=== PATIENT | male | born 1945 | race Caucasian/White ===

== ENCOUNTER 2020-04-22 13:28 | Inpatient (IN) | payer OTHER ==
[2020-04-22] MEDS ORDERED: LACTATED RINGERS SOLUTION 1000 ML INFUS.BAG IV ONE ×2 (14:12→15:51)
[2020-04-22 14:20] LABS: ACTIVATED PTT 21.6 SECONDS (25.2-36.5)
[2020-04-22 14:25] LABS: ALBUMIN 3.6 g/dl (3.4-5.0); BILIRUBIN,TOTAL 0.7 mg/dl (0.2-1); CALCIUM 8.7 mg/dl (8.5-10); INR 1.06 (0.82-1.09); MAGNESIUM 1.3 mg/dL (1.8-2.4); POTASSIUM 3.8 mmol/L (3.5-5.1); PROTHROMBIN TIME (PATIENT) 11.9 SEC (10.2-13.0); TOT PROT 6.5 g/dl (6.4-8.2)
[2020-04-22 14:26] LABS: EOS % 0.3 % (0-4.5); HEMATOCRIT 44.1 % (35.4-49); HEMOGLOBIN 14.4 GM/dl (11.7-16.9); LYMPH % 19.7 % (8-40); MCH 28.8 pg (25.7-33.7); MCHC 32.8 g/dl (32.0-35.9); MEAN CELL VOLUME 87.8 fl (80-96); MEAN PLT VOLUME 7.3 fl (7.5-11.1); MONO % 1.7 % (3.8-10.2); NEUT % 76.3 % (42.8-82.8); PLATELET COUNT 245 K/MM3 (134-434); RBC 5.02 M/mm3 (4.00-5.60); WHITE BLOOD COUNT 4.5 K/mm3 (4.0-10.8)
[2020-04-22] MEDS ORDERED: MAGNESIUM SULF 50% (8.12 MEQ/2 ML-1 GM VIAL) IVPB ONE (14:33)
[2020-04-22] MEDS ORDERED: MAGNESIUM 1GM/D5W - 2 GM/200 ML IVPB IVPB ONE (15:16)
[2020-04-22] MEDS ORDERED: CEFTRIAXONE 1 GM in DEXTROSE 5%-WATER - 100 ML IVPB ONE (15:20)
[2020-04-22 15:27] LABS: PHOSPHOROUS 2.8 mg/dl (2.5-4.9)
[2020-04-22 15:33] LABS: EPITHELIAL CELLS RARE /hpf
--- NOTE | 2020-04-22 16:13 | PDOC ---
Documentation entered by Thao Danielle SCRIBE, acting as scribe for Victoria Villeda DO. Victoria Villeda DO: This documentation has been prepared by the shalondaibe, Thao Danielle SCRIBE, under my direction and personally reviewed by me in its entirety. I confirm that the documentation accurately reflects all work, treatment, procedures, and medical decision making performed by me. History of Present Illness - General Chief Complaint: Altered Mental Status Stated Complaint: CONFUSION/WEAK Time Seen by Provider: 04/22/20 13:29 History Source: Patient Exam Limitations: No Limitations - History of Present Illness Initial Comments: 04/22/20 15:56 The patient is a 74-year-old male with a past medical history significant for CAD s/p 1x stents, NIDDM, R. 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 Dia at [facility], last chemotherapy 04/19) who presents to the emergency department with weakness, confusion, and lightheadedness. The patient reports he had an episode of lightheadedness today after waking up, which resolved however, he got up to get breakfast and sat down on a chair and was deciding what to eat, when he had another episode of lightheadedness. The patient reports at times, not all the time, the episodes are positional. The patient reports associated symptoms of nausea after eating, blurry vision, and constipation associated with an episode of bright red blood in the toilet. The patient reports he was straining to use the bathroom this morning, he had 3 episodes of loose stool, with an episode of bright red blood in the toilet. The patient reports on and off episodes of blurry vision, mostly on the right side, had an episode of right sided blurry vision today, but wasn't as severe as prior episodes. The patient's sons are at his bedside, report the patient was having difficulty walking down the stairs today, he was ambulating with a shuffling gait. The patient reports pain to the side of his tongue since yesterday which presents after eating. The patient reports he is eating and drinking per usual. The patient denies chest pain or shortness of breath. Denies a headache. Denies vomiting. Denies numbness or tingling to the arm and legs. Denies recent falls or head injury. The patient was compliant with all his medications today Allergies: walnut. NKDA PCP: Dr. Pierre ([facility]) Oncologist: Dr. Dia ([facility]) tPA Exclusion checklist 3-4.5h - Time Elapsed Date last known well: 04/22/20 Time last known well: 22:00 Elaspsed time: Day(s) and Hour(s) and -299 Minutes - Thrombolytic Therapy Candidate Is patient eligible for thrombolytic therapy: No - Ineligibility reason(s) Reasons No tPA given: See reason(s) noted above (bleed on head ct) NIH Stroke Scale - Last Known Well Date/Time & Onset Date Last Known Well: 04/21/20 Time Last Known Well: 22:00 - Initial Evaluation Level of consciousness: Alert Ask patient the month and their age: Answers both correctly Ask patient to open & close eyes; make fist and let go: Obeys both correctly Best gaze (horizontal eye movement): Normal Visual field testing: No visual field loss Facial paresis (Show teeth/raise eyebrows/close eyes tight): Normal symmetrical movement Motor Function: Left Arm: Normal Motor Function: Right Arm: Normal (extends arm 90 (or 45) degrees for 10 seconds without drift Motor Function: Left Leg: Normal (extends leg 30 degrees for 5 seconds without drift) Motor Function: Right Leg: Drift Limb Ataxia: No ataxia Sensory(Use pinprick test arms,legs,trunk,face/side to side): Normal Best language (Describe picture, name items, read sentences): No Aphasia Dysarthria (read several words): Normal articulation Extinction and Inattention: No abnormality - Total Score NIH Stroke Scale Score: 1 Past History - Medical History Allergies/Adverse Reactions: Allergies Allergy/AdvReac Type Severity Reaction Status Date / Time walnut Allergy Verified 04/22/20 13:29 Home Medications: Ambulatory Orders Aspirin [ASA -] 81 mg PO DAILY 04/22/20 Atorvastatin Ca [Lipitor] 20 mg PO HS 04/22/20 Dexamethasone 2 mg PO BID 04/22/20 Lacosamide [Vimpat] 100 mg PO BID 04/22/20 Levothyroxine [Synthroid -] 75 mcg PO DAILY 04/22/20 Losartan Potassium 12.5 mg PO DAILY 04/22/20 Metformin HCl [Glucophage] 1,000 mg PO BID 04/22/20 Multivitamins [Tab-A-Vit -] 1 tab PO DAILY 04/22/20 Omeprazole 40 mg PO DAILY 04/22/20 levETIRAcetam [Keppra -] 750 mg PO BID 04/22/20 Cardiac Disorders: Yes (CAD) Diabetes: Yes (NIDDM) - Surgical History Cardiac Surgery: Yes (Stents x 2) - Immunization History Immunization Up to Date: No - Psycho-Social/Smoking History Smoking History: Former smoker Have you smoked in the past 12 months: No Information on smoking cessation initiated: No - Substance Abuse Hx (Audit-C & DAST Scrn) How often the patient has a drink containing alcohol: Never Score: In Men: 4 or > Positive; In Women: 3 or > Positive: 0 Screen Result (Pos requires Nsg. Audit-10AR): Negative In the last yr the pt used illegal drug/Rx for NonMed reason: No Score: Yes response is considered Positive: 0 Screen Result (Positive result requires Nsg. DAST-10): Negative Review of Systems - Review of Systems Able to Perform ROS?: Yes Comments:: 04/22/20 16:20 GENERAL/CONSTITUTIONAL: No fever or chills. +weakness and confusion. HEAD, EYES, EARS, NOSE AND THROAT: +pain to the side of his tongue. +right eye change in vision. No ear pain or discharge. No sore throat. No recent head injury. GASTROINTESTINAL: +nausea, constipation and bright red blood in the toilet. No vomiting. GENITOURINARY: No dysuria, frequency, or change in urination. CARDIOVASCULAR: No chest pain or shortness of breath. RESPIRATORY: No cough, wheezing, or hemoptysis. MUSCULOSKELETAL: No joint or muscle swelling or pain. No neck or back pain. SKIN: No rash NEUROLOGIC: +lightheadedness and unsteady gait. No headache, vertigo, loss of consciousness, or change in strength/sensation. ENDOCRINE: No increased thirst. No abnormal weight change. HEMATOLOGIC/LYMPHATIC: No anemia, easy bleeding, or history of blood clots. ALLERGIC/IMMUNOLOGIC: No hives or skin allergy. *Physical Exam - Vital Signs Last Vital Signs Temp Pulse Resp BP Pulse Ox 98.4 F 95 H 20 96/67 98 04/22/20 13:28 04/22/20 14:05 04/22/20 13:28 04/22/20 14:05 04/22/20 13:28 - Physical Exam 04/22/20 16:25 Constitutional: Awake, alert, oriented. No acute distress. Head: Normocephalic. Atraumatic Eyes: +3mm pupils and reactive bilaterally. EOMI. Conjunctivae are not pale. ENT: +canker sore to right lateral aspect of the anterior tongue Mucous membranes are moist and intact. Posterior pharynx without exudate or erythema. Uvula midline. Neck: Supple. Full ROM. No lymphadenopathy. Cardiovascular: Regular rate. Regular rhythm. S1, S2 regular. Distal pulses are 2+ and symmetric. Pulmonary/Chest: No evidence of respiratory distress. Clear to auscultation bilaterally No wheezing, rales or rhonchi. Abdominal: Soft and non-distended. There is no tenderness. No rebound, guarding or rigidity. No palpable masses. Good bowel sounds. Back: No CVA tenderness. Musculoskeletal: No leg edema. No cyanosis. No clubbing. Full range of motion in all extremities. No calf tenderness. Radial/pedal pulses are intact and 2+ bilaterally Skin: Skin is warm and dry. No petechiae. No purpura. Neurological: +awake, alert and oriented, Cranial nerves II-XII are grossly intact. Muscle strength 5/5, sensation intact to the upper extremity. +slight pronator drift to the right leg, sensation intact, pulses are intact. Psychiatric: Good eye contact. Normal interaction, affect and behavior. Heart Score/ECG Review - ECG Intrepretation Comment:: 04/22/20 16:12 sinus at 98, l axis, lvh, q waves septally which are new from prior ekg, no acute st/t wave findings, abnl ekg ED Treatment Course - LABORATORY CBC & Chemistry Diagram: 04/22/20 13:56 04/22/20 13:56 Medical Decision Making - Critical Care Time Total Critical Care Time (minutes): 35 Critical Care Statement: The care of this patient involved high complexity decision making to prevent further life threatening deterioration of the patient's condition and/or to evaluate & treat vital organ system(s) failure or risk of failure. - Medical Decision Making 04/22/20 16:06 a/p: 74yo male with hx of cad, htn, dm, stage IV lung ca with mets to the brain, s/p craniotomy, radiation and on active chemo -last chemo infusion was on -pt is followed and managed at [facility] -pt today with weakness, episodes of confusion, and an ataxic gait brought to the hospital by his sons for eval -pt denies fevers -has been eating and drinking normally, constipation today followed by 3 soft bm -pt denies urinary symptoms -pt with an ataxic gait at home -on neuro has R leg pronator drift -pt upon arrival was sent for a STAT head ct that showed a small area of subarachnoid blood in the R frontal cortex -labs were sent that show a low magnesium of 1.3, elevated BUN, and elevated lactate -cards is [facility] -no cp/sob, trop neg -ua + uti, iv abx sent and blood cultures sent -pt will need admission for iv abx, iv mag -Dr. Lake was consulted for the subarachnoid blood - recommends cta head, Dr. Mac was also consult for the ataxic gait and leg weakness -no TPA given pt has blood in the brain on ct -pt with a waxing and waning mental status -cta pending -case was discussed with TIMOTHY who accepts pt to service 04/22/20 16:54 cta does not show any aneurysm or avm call placed to Dr. Chase to update him 04/22/20 17:01 pt and family updated pt feeling better more awake, alert bp improved pt will be admitted to the floor Discharge - Discharge Information Problems reviewed: Yes Clinical Impression/Diagnosis: Ataxia, Confusion, UTI (urinary tract infection), Hypomagnesemia, Subarachnoid bleed Condition: Guarded - Admission Yes - Follow up/Referral - Patient Discharge Instructions - Post Discharge Activity
--- NOTE | 2020-04-22 17:31 | PN ---
Progress Note (short form) - Note Progress Note: NEUROSURGERY CONSULT DICTATED Care d/w Dr Villeda h/o CAD s/p 1x stents, NIDDM, peripheral neuropathy, OD retinal detachment (8 months ago) and NSC lung cancer with brain mets, R parietal craniotomy, last chemotherapy 04/19 c/o weakness, confusion, and lightheadedness. Lightheadedness today x2. ? positional or BP related. + blurry vision, and constipation associated with an episode of bright red blood in stool after 3 episodes of loose stool. Intermittent blurry vision, mostly on the right. Could barely get up this am. Denies H/A, N/V, sz, fever, chill, coughs, recent trauma or fall. Sons in room. PE: T 98.4, 122/79 HEENT- R parietal craniotomy scar well healed; Neck- supple; Cor- RR; Lungs- CTA B; Abd- benign; Ext- no sign of DVT Speech fluent, memory intact CN- decreased peripheral vision OD > OS, face symmetric, tongue midline; Motor- 5/5 strength without drift; Sensation- intact LT; DTR- hyporeflexic; Cerebellar- intact B FTN WBC 4.5, Hgb 14.4, INR 1.06, Ptt 20.4, Na 136, Lactic acid 4.5, BUN 26/[address]- B occipital hypodensity with no significant mass effect; R parietal craniotomy; R frontal convexity minimal hyperdensity CTA head-neck: No aneurysm or AVM; no significant enhancing lesion Metastatic brain NSC lung primary Mild dehydration DM with peripheral neuropathy B occipital non-enhancing hypodensity- encephalomalacia (post RT?) vs vascular insufficiency Maintain hydration Brain MRI with-without including diffusion imaging to r/o ischemia unless recent outside brain MRI imaging had already clearly defined/confirmed the occipital lesions as chronic Check cultures result D/w Drs. Haro and hospitalist
[2020-04-22 17:45] VITALS: TEMP 97.7
[2020-04-22 18:00] VITALS: BMI 27.9
[2020-04-22] MEDS ORDERED: ONDANSETRON 4 MG/2 ML VIAL IVPUSH PRN (18:22)
--- NOTE | 2020-04-22 18:25 | HP ---
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 after waking up, which resolved however, he got up to get breakfast and sat down on a chair felt confused so BIB family to Ed for evaluation, no c/o witnessed seizure, fever, chills, dysuria, abd pain mnausea or vomiting in the Ed w/o shows post operative changes in CT head and possible minimal ? subarchanoid hemorrhage, Neuro surgery was consulted recommended CR A Brain tht shows no aneurysm changes, as per family Ms improved after IV Hydration. History Source: Patient - Advance Directives Advance Directives: Yes: Health Care Proxy - Smoking History Smoking history: Former smoker Have you smoked in the past 12 months: No - Alcohol/Substance Use Hx Alcohol Use: No Home Medications - Allergies Allergies/Adverse Reactions: Allergies Allergy/AdvReac Type Severity Reaction Status Date / Time walnut Allergy Verified 04/22/20 13:29 - Home Medications Home Medications: Ambulatory Orders Aspirin [ASA -] 81 mg PO DAILY 04/22/20 Atorvastatin Ca [Lipitor] 20 mg PO HS 04/22/20 Dexamethasone 2 mg PO BID 04/22/20 Lacosamide [Vimpat] 100 mg PO BID 04/22/20 Levothyroxine [Synthroid -] 75 mcg PO DAILY 04/22/20 Losartan Potassium 12.5 mg PO DAILY 04/22/20 Metformin HCl [Glucophage] 1,000 mg PO BID 04/22/20 Multivitamins [Tab-A-Vit -] 1 tab PO DAILY 04/22/20 Omeprazole 40 mg PO DAILY 04/22/20 levETIRAcetam [Keppra -] 750 mg PO BID 04/22/20 Review of Systems - Review of Systems Constitutional: denies: Chills, Diaphoresis Eyes: denies: Blind Spots, Blurred Vision, Double Vision, Eye Pain HENT: denies: Difficult Swallowing, Ear Discharge Neck: denies: Lumps, Pain on Movement Cardiovascular: denies: Chest Pain, Edema, Palpitations, Shortness of Breath Respiratory: denies: Cough, Exercise Intolerance Gastrointestinal: denies: Abdominal Pain, Bloating, Constipation, Diarrhea Genitourinary: denies: Burning, Discharge Musculoskeletal: denies: Back Pain, Crepitus Neurological: reports: Confusion, Dizziness, Incoordination, Unsteady Gait. denies: Change in Speech, Headache, Numbness, Parasthesia Endocrine: denies: Excessive Sweating, Flushing, Increased Hunger, Other Hematology/Lymphatic: denies: Easily Bruised, Excessive Bleeding Physical Examination Vital Signs: Vital Signs Temperature 97.7 F 04/22/20 17:40 Pulse Rate 73 04/22/20 17:40 Respiratory Rate 18 04/22/20 17:40 Blood Pressure 107/64 04/22/20 17:40 O2 Sat by Pulse Oximetry (%) 93 L 04/22/20 17:40 Elderly man not in distress HEENT: Mm moist no anemia, PERRLA EPOMI NECK: No JVD No Bruit CHEST: CTA B/L CVS; S1S2 R no m/g/r ABD: No distention, no suprapubic tenderness, BS + EXT: No edema feet, no calf tenderness MANAGER NC: alert aware that he is in hospital , no facial asymmetry, no gross motor sensory deficit Labs: CBC, BMP 04/22/20 13:56 04/22/20 13:56 Imaging - Results Chest X-ray: Report Reviewed (No acute chnages) Cat Scan: Report Reviewed (Possible Rt frontal SAH CTA: No aneurysm report reviewed) EKG: Report Reviewed (No acute ST T changes) Problem List - Problems (1) Altered mental state Assessment/Plan: multilateral can be due to UTI /Dehydration on base line brain pathology, Neurology consult, CT and CTA reviewed, Neuro check, F/U MRI as recommended by neurology consult, observe for Seizures Problems reviewed: Yes Code(s): R41.82 - ALTERED MENTAL STATUS, UNSPECIFIED (2) UTI (urinary tract infection) Assessment/Plan: F/U Cultures cont IV Hydration and Ceftriaxone Problems reviewed: Yes Code(s): N39.0 - URINARY TRACT INFECTION, SITE NOT SPECIFIED (3) Complex partial seizure Assessment/Plan: Cont Keppra 750 BID and Vampat 100 BID observe closely for seizures. Problems reviewed: Yes Code(s): G40.209 - LOCAL-REL SYMPTC EPI W CMPLX PRT SEIZ,NOT NTRCT,W/O STAT EPI Qualifiers: Epilepsy type: partial symptomatic (4) CAD (coronary artery disease) Assessment/Plan: Cont statin Hold ASA no acute issue EKG unremarkable Problems reviewed: Yes Code(s): I25.10 - ATHSCL HEART DISEASE OF [place] CORONARY ARTERY W/O ANG PCTRS (5) Hypomagnesemia Assessment/Plan: Repleted Code(s): E83.42 - HYPOMAGNESEMIA (6) Subarachnoid bleed Assessment/Plan: Neuro check hold ASA, evaluted by Neurology and Neuro consult. Problems reviewed: Yes Code(s): I60.9 - NONTRAUMATIC SUBARACHNOID HEMORRHAGE, UNSPECIFIED (7) Lactic acidemia Assessment/Plan: on Metformin hold metformin F/U Lactic acid level Problems reviewed: Yes Code(s): E87.2 - ACIDOSIS (8) T2DM (type 2 diabetes mellitus) Assessment/Plan: Diabetic diet, Hold Metformin , correction dose insulin Problems reviewed: Yes Code(s): E11.9 - TYPE 2 DIABETES MELLITUS WITHOUT COMPLICATIONS (9) HTN (hypertension) Assessment/Plan: Hold Lisinopri Problems reviewed: Yes Code(s): I10 - ESSENTIAL (PRIMARY) HYPERTENSION
[2020-04-22] MEDS ORDERED: SODIUM CHLORIDE 1,000 ML IV SCH (18:30)
--- NOTE | 2020-04-22 18:51 | EKG ---
Test Reason : Blood Pressure : / mmHG Vent. Rate : 098 BPM Atrial Rate : 098 BPM P-R Int : 158 ms QRS Dur : 072 ms QT Int : 318 ms P-R-T Axes : 009 -41 -21 degrees QTc Int : 405 ms NORMAL SINUS RHYTHM LEFT AXIS DEVIATION MINIMAL VOLTAGE CRITERIA FOR LVH, MAY BE NORMAL VARIANT NONSPECIFIC ST ABNORMALITY ABNORMAL ECG Confirmed by MD ENCINAS MOYSES ([id number]) on 04/22/2020 6:51:19 PM Referred By: KARENA PORRAS Confirmed By:RONA ENCINAS MD
[2020-04-22] MEDS: levETIRAcetam 250 MG TABLET PO SCH (21:10)
[2020-04-22] MEDS: LACOSAMIDE 50 MG TABLET PO SCH (21:10)
--- NOTE | 2020-04-22 21:16 | CON.NEURO ---
Consult - Alcohol/Substance Use Hx Alcohol Use: No - Smoking History Smoking history: Former smoker Have you smoked in the past 12 months: No Home Medications - Allergies Allergies/Adverse Reactions: Allergies Allergy/AdvReac Type Severity Reaction Status Date / Time walnut Allergy Verified 04/22/20 13:29 - Home Medications Home Medications: Ambulatory Orders Aspirin [ASA -] 81 mg PO DAILY 04/22/20 Atorvastatin Ca [Lipitor] 20 mg PO HS 04/22/20 Dexamethasone 2 mg PO BID 04/22/20 Lacosamide [Vimpat] 100 mg PO BID 04/22/20 Levothyroxine [Synthroid -] 75 mcg PO DAILY 04/22/20 Losartan Potassium 12.5 mg PO DAILY 04/22/20 Metformin HCl [Glucophage] 1,000 mg PO BID 04/22/20 Multivitamins [Tab-A-Vit -] 1 tab PO DAILY 04/22/20 Omeprazole 40 mg PO DAILY 04/22/20 levETIRAcetam [Keppra -] 750 mg PO BID 04/22/20 Physical Exam-Neuro Vital Signs: Vital Signs Temperature 97.7 F 04/22/20 17:40 Pulse Rate 73 04/22/20 17:40 Respiratory Rate 18 04/22/20 20:06 Blood Pressure 107/64 04/22/20 17:40 O2 Sat by Pulse Oximetry (%) 93 L 04/22/20 20:06 Labs: CBC, BMP 04/22/20 13:56 04/22/20 13:56 INR, PTT INR 1.06 (0.82-1.09) 04/22/20 13:56 Assessment/Plan cc Confusion and ataxic gait HPI 74 year old male history of CAD, dm,Neuropathy, HTN, Non small cell lung cancer with brain mets. He has right fronto parietal craniotomy, seizure, and getting chemo at [facility]. Last chemo was on april 19. Patient came withfeeling of lightheadedness and, confusion and difficulty walking. Patinet has ct scan showed, there is ? sah on right frontal and bilateral occpital area lesion ? radiotion induced injury vs old lesion. Patient has been feeling better, he has dehydration, and uti. He was given abx. Patient was seen with his son at bed side, both of them work at [employer]. There has not been any high grade fever, flu like symptoms or seizure . There is no headache. He has cta and tehre is no evidence of Aneurysm. He has been on two aed and stable dose , last seizure two years ago. He is taking dexamethasone 2 mg po bid Allergies/Adverse Reactions: Allergies Allergy/AdvReac Type Severity Reaction Status Date / Time walnut Allergy Verified 04/22/20 13:29 Home Medications: Aspirin [ASA -] 81 mg PO DAILY 04/22/20 Atorvastatin Ca [Lipitor] 20 mg PO HS 04/22/20 Dexamethasone 2 mg PO BID 04/22/20 Lacosamide [Vimpat] 100 mg PO BID 04/22/20 Levothyroxine [Synthroid -] 75 mcg PO DAILY 04/22/20 Losartan Potassium 12.5 mg PO DAILY 04/22/20 Metformin HCl [Glucophage] 1,000 mg PO BID 04/22/20 Multivitamins [Tab-A-Vit -] 1 tab PO DAILY 04/22/20 Omeprazole 40 mg PO DAILY 04/22/20 levETIRAcetam [Keppra -] 750 mg PO BID 04/22/20 ROS,FH,S H reviewed in [facility] NEUROLOGICAL EXAMINATION Alert oriented x 3 ( tod me today is april 20, could not tell year, knew [facility]) neck is supple, speech is normal, vital stable eomi, pupils reactive no face asymmetry moving all ext ct head reviewed there is right ? mild sah and craniotomy there is bilateral occpital cta no aneursm Assessment/Plan 74 year old male history of CAD, dm,Neuropathy, HTN, Non small cell lung cancer with brain mets. Admitted for transient confusion, difficulty walking feeling better after iv fluid and abx. Clinically unlikley to be meningitis, tia or seizure Plan: continue keppra 750 mg po bid and lacosamide 100 mg po bid - no need for eeg - cta of neck and brain unremarkable - watch for now - continue abx - mri of brain with and without contrast, - spoke to neurosurgery, pmd and both sons, we all agree with plan - pt tomorrow - closely observation Thanking you so much
[2020-04-22] MEDS ORDERED: DEXAMETHASONE PO SCH (22:00)
[2020-04-22] MEDS ORDERED: DEXAMETHASONE 2 MG TABLET PO SCH (22:00)
[2020-04-22] MEDS ORDERED: ATORVASTATIN CA 20 MG TABLET (FP) PO SCH (22:00)
[2020-04-23] MEDS ORDERED: INSULIN SLIDING SCALE (NOVOLOG) 1 VIAL SQ SCH (07:00)
[2020-04-23] MEDS ORDERED: LEVOTHYROXINE NA 75 MCG TABLET (FP) PO SCH (07:00)
[2020-04-23 08:40] LABS: BASO % 0.7 % (0-2.0); EOS % 0.4 % (0-4.5); HEMOGLOBIN 12.1 GM/dl (11.7-16.9); LYMPH % 35.7 % (8-40); MCH 28.3 pg (25.7-33.7); MEAN CELL VOLUME 88.6 fl (80-96); MEAN PLT VOLUME 7.1 fl (7.5-11.1); MONO % 2.9 % (3.8-10.2); NEUT % 60.3 % (42.8-82.8); PLATELET COUNT 188 K/MM3 (134-434); RBC 4.29 M/mm3 (4.00-5.60); RDW 17.1 % (11.9-15.9); WHITE BLOOD COUNT 3.6 K/mm3 (4.0-10.8)
--- NOTE | 2020-04-23 08:51 | PN ---
Physical Exam: SUBJECTIVE: Patient seen and examined. Feeling better. Denies pain, weakness, fevers/chills. OBJECTIVE: Vital Signs Period Temp Pulse Resp BP Sys/Iraheta Pulse Ox Last 24 Hr 97.7 F-98.4 F 73-102 18-20 88-122/63-79 93-100 GENERAL: The patient is awake, alert, and fully oriented, in no acute distress. HEAD: Normal with no signs of trauma. EYES: PERRL, extraocular movements intact, sclera anicteric, conjunctiva clear. No ptosis. ENT: Ears normal, nares patent, oropharynx clear without exudates, moist mucous membranes. Grade II mucositis. NECK: Trachea midline, full range of motion, supple. LUNGS: Breath sounds equal, clear to auscultation bilaterally, no wheezes, no crackles, no accessory muscle use. HEART: Regular rate and rhythm, S1, S2 without murmur, rub or gallop. ABDOMEN: Soft, nontender, nondistended, normoactive bowel sounds, no guarding, no rebound, no hepatosplenomegaly, no masses. EXTREMITIES: 2+ pulses, warm, well-perfused, no edema. NEUROLOGICAL: Cranial nerves II through XII grossly intact. Normal speech, gait not observed. PSYCH: Normal mood, normal affect. SKIN: Warm, dry, normal turgor, no rashes or lesions noted. Laboratory Results - last 24 hr 04/22/20 04/22/20 04/22/20 13:50 13:56 13:56 WBC 4.5 RBC 5.02 Hgb 14.4 Hct 44.1 MCV 87.8 MCH 28.8 MCHC 32.8 RDW 17.0 H Plt Count 245 MPV 7.3 L Absolute Neuts (auto) 3.4 Neutrophils % 76.3 Lymphocytes % 19.7 Monocytes % 1.7 L Eosinophils % 0.3 Basophils % 2.0 PT with INR 11.9 INR 1.06 PTT (Actin FS) 21.6 L Sodium Potassium Chloride Carbon Dioxide Anion Gap BUN Creatinine Est GFR (CKD-EPI)AfAm Est GFR (CKD-EPI)NonAf POC Glucometer Random Glucose Lactic Acid Uric Acid Calcium Phosphorus Magnesium Total Bilirubin AST ALT Alkaline Phosphatase Creatine Kinase Troponin I < 0.03 B-Natriuretic Peptide Total Protein Albumin TSH Urine Color Urine Appearance Urine pH Urine Protein Urine Glucose (UA) Urine Ketones Urine Blood Urine Nitrite Urine Bilirubin Urine Urobilinogen Ur Leukocyte Esterase Urine RBC Urine WBC Ur Transition Epith Cell Urine Bacteria Blood Type Antibody Screen 04/22/20 04/22/20 04/22/20 13:56 13:56 13:56 WBC RBC Hgb Hct MCV MCH MCHC RDW Plt Count MPV Absolute Neuts (auto) Neutrophils % Lymphocytes % Monocytes % Eosinophils % Basophils % PT with INR INR PTT (Actin FS) Sodium 136 Potassium 3.8 Chloride 99 Carbon Dioxide 23 Anion Gap 14 BUN 26.0 H Creatinine 1.0 Est GFR (CKD-EPI)AfAm 86.15 Est GFR (CKD-EPI)NonAf 74.34 POC Glucometer Random Glucose 195 H Lactic Acid 4.5 H* Uric Acid Calcium 8.7 Phosphorus Magnesium 1.3 L Total Bilirubin 0.7 AST 32 ALT 41 Alkaline Phosphatase 70 Creatine Kinase 80 Troponin I B-Natriuretic Peptide 560.0 H Total Protein 6.5 Albumin 3.6 TSH 2.96 Urine Color Urine Appearance Urine pH Urine Protein Urine Glucose (UA) Urine Ketones Urine Blood Urine Nitrite Urine Bilirubin Urine Urobilinogen Ur Leukocyte Esterase Urine RBC Urine WBC Ur Transition Epith Cell Urine Bacteria Blood Type O POSITIVE Antibody Screen Negative 04/22/20 04/22/20 04/23/20 14:45 14:52 06:31 WBC RBC Hgb Hct MCV MCH MCHC RDW Plt Count MPV Absolute Neuts (auto) Neutrophils % Lymphocytes % Monocytes % Eosinophils % Basophils % PT with INR INR PTT (Actin FS) Sodium Potassium Chloride Carbon Dioxide Anion Gap BUN Creatinine Est GFR (CKD-EPI)AfAm Est GFR (CKD-EPI)NonAf POC Glucometer 125 Random Glucose Lactic Acid Uric Acid 4.0 Calcium Phosphorus 2.8 Magnesium Total Bilirubin AST ALT Alkaline Phosphatase Creatine Kinase Troponin I B-Natriuretic Peptide Total Protein Albumin TSH Urine Color Yellow Urine Appearance Clear Urine pH 5.5 Urine Protein Negative Urine Glucose (UA) Trace Urine Ketones Negative Urine Blood Trace-intact Urine Nitrite Positive Urine Bilirubin Negative Urine Urobilinogen 0.2 Ur Leukocyte Esterase Negative Urine RBC 2-5 Urine WBC Rare Ur Transition Epith Cell Rare Urine Bacteria Moderate Blood Type Antibody Screen 04/23/20 06:59 WBC 3.6 L RBC 4.29 Hgb 12.1 Hct 38.0 MCV 88.6 MCH 28.3 MCHC 32.0 RDW 17.1 H Plt Count 188 D MPV 7.1 L Absolute Neuts (auto) 2.2 Neutrophils % 60.3 D Lymphocytes % 35.7 D Monocytes % 2.9 L Eosinophils % 0.4 Basophils % 0.7 PT with INR INR PTT (Actin FS) Sodium Potassium Chloride Carbon Dioxide Anion Gap BUN Creatinine Est GFR (CKD-EPI)AfAm Est GFR (CKD-EPI)NonAf POC Glucometer Random Glucose Lactic Acid Uric Acid Calcium Phosphorus Magnesium Total Bilirubin AST ALT Alkaline Phosphatase Creatine Kinase Troponin I B-Natriuretic Peptide Total Protein Albumin TSH Urine Color Urine Appearance Urine pH Urine Protein Urine Glucose (UA) Urine Ketones Urine Blood Urine Nitrite Urine Bilirubin Urine Urobilinogen Ur Leukocyte Esterase Urine RBC Urine WBC Ur Transition Epith Cell Urine Bacteria Blood Type Antibody Screen Active Medications Generic Name Dose Route Start Last Admin Trade Name Freq PRN Reason Stop Dose Admin Atorvastatin Calcium 20 mg 04/22/20 22:00 04/22/20 21:10 Lipitor - PO 20 mg HS KAREN Administration Dexamethasone 2 mg 04/23/20 10:00 Decadron - PO BID KAREN Ceftriaxone Sodium 1 gm/ 50 mls @ 100 mls/hr 04/23/20 10:00 Dextrose IVPB DAILY [facility] Sodium Chloride 1,000 mls @ 75 mls/hr 04/22/20 18:30 Normal Saline - IV ASDIR KAREN Insulin Aspart 1 vial 04/23/20 07:00 Novolog Vial Sliding Scale - SQ TIDAC [facility] Protocol Lacosamide 100 mg 04/22/20 22:00 04/22/20 21:10 Vimpat - PO 100 mg BID KAREN Administration Levetiracetam 750 mg 04/22/20 22:00 04/22/20 21:10 Keppra - PO 750 mg BID KAREN Administration Levothyroxine Sodium 75 mcg 04/23/20 07:00 04/23/20 06:28 Synthroid - PO 75 mcg ACBK KAREN Administration Multivitamins/Minerals/Vitamin C 1 tab 04/23/20 10:00 Tab-A-Vit - PO DAILY KAREN Ondansetron HCl 4 mg 04/22/20 18:22 Zofran Injection IVPUSH Q6H PRN NAUSEA Pantoprazole Sodium 40 mg 04/23/20 10:00 Protonix - PO DAILY [facility] ASSESSMENT/PLAN: 74-year-old male CAD s/p stent , T2DM with peripheral europathy, HTN, urethral stricture/chronic retention, 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, last chemotherapy 04/19) admitted with weakness, confusion, lightheadedness, and hypotension. 1. AMS -Possibly secondary to UTI, dehydration -Improved following treatment of above -MRI brain with/without contrast reviewed and notable for small acute enhancing, hemorrhagic right cerebellar lesion - images were reviewed by his neuro- oncologist at [facility] and neurosurgery here and appears improved when compared to prior (of note, physician son at bedside states he was determined at [facility] tumor board to not have leptomeningeal disease) 2. UTI -On Rocephin (04/22 -) -Dc on 10 day course Keflex pending culture result 3. Seizure prophylaxis -Continue Keppra 750mg bid, Vimpat 100mg bid 4. Hypomagnesemia -Replete with 1g IVPB 5. CAD -Hold ASA given hemorrhagic metastasis 6. Lactic acidemia -Resolved with hydration -Hold Metformin 7. Hypertension -At goal -Hold Losartan 8. Mucositis -Lidocaine swish & swallow q6h 9. Urinary retention -400mL post-void residual today -Per son, no intervention DISPO: Requires inpatient care. SW to arrange home PT on dc. Discussed with Dr. Mac and Dr Lake. Visit type - Emergency Visit Emergency Visit: Yes ED Registration Date: 04/22/20 Care time: The patient presented to the Emergency Department on the above date and was hospitalized for further evaluation of their emergent condition. - New Patient This patient is new to me today: Yes Date on this admission: 04/23/20 - Critical Care Critical Care patient: No - Discharge Referral Referred to [facility] Med P.C.: No - Medication Review Med list reviewed for High Risk Meds patients 65 and older: Yes
[2020-04-23 08:52] LABS: BILIRUBIN,TOTAL 0.6 mg/dl (0.2-1); CALCIUM 8.2 mg/dl (8.5-10); CREATININE 0.8 mg/dl (0.55-1.3); MAGNESIUM 1.6 mg/dL (1.8-2.4); POTASSIUM 4.3 mmol/L (3.5-5.1); TOT PROT 5.5 g/dl (6.4-8.2)
--- NOTE | 2020-04-23 09:13 | EKG ---
Test Reason : Blood Pressure : / mmHG Vent. Rate : 058 BPM Atrial Rate : 058 BPM P-R Int : 174 ms QRS Dur : 094 ms QT Int : 418 ms P-R-T Axes : 002 -27 -08 degrees QTc Int : 410 ms SINUS BRADYCARDIA OTHERWISE NORMAL ECG WHEN COMPARED WITH ECG OF 22-APR-2020 13:52, VENT. RATE HAS DECREASED BY 40 BPM Confirmed by LAZARO GALLEGOS MD ([id number]) on 04/23/2020 9:13:18 AM Referred By: DR BAEZ Confirmed By:LAZARO GALLEGOS MD
[2020-04-23] MEDS ORDERED: MAGNESIUM 1GM/D5W - 1 GM/100 ML IVPB IVPB ONE (09:23)
[2020-04-23] MEDS ORDERED: DEXTROSE 5%-WATER - 50 ML IVPB ONE (09:27)
[2020-04-23] MEDS ORDERED: PT OWN MED DRAWER 7, Y5N ONE (09:27)
[2020-04-23] MEDS ORDERED: cefTRIAXone SODIUM 1 GM VIAL ONE (09:27)
[2020-04-23] MEDS: levETIRAcetam 250 MG TABLET PO SCH (09:33)
[2020-04-23] MEDS: LACOSAMIDE 50 MG TABLET PO SCH (09:34)
[2020-04-23] MEDS ORDERED: DEXAMETHASONE 4 MG TABLET (FP) PO SCH (10:00)
[2020-04-23] MEDS ORDERED: LOSARTAN POTASSIUM 25 MG TABLET PO SCH (10:00)
[2020-04-23] MEDS ORDERED: CEFTRIAXONE 1 GM in DEXTROSE 5%-WATER - 50 ML IVPB SCH (10:00)
[2020-04-23] MEDS ORDERED: MULTIVITAMINS (DAILY MVI) TABLET (FP) PO SCH (10:00)
[2020-04-23] MEDS ORDERED: PANTOPRAZOLE 40 MG TABLET PO SCH (10:00)
--- NOTE | 2020-04-23 10:53 | PN ---
Progress Note (short form) - Note Progress Note: NEUROSURGERY h/o CAD s/p stent, NIDDM, peripheral neuropathy, retinal detachment and NSC lung cancer with brain mets, R parietal craniotomy, last chemotherapy 04/19 c/o weakness, confusion, and lightheadedness. On ceftriaxone. Continues to feel better. Denies H/A, N/V, sz, fever, chill, coughs. Son in room. PE: AF, VSS HEENT- R parietal craniotomy scar well healed; Neck- supple; Cor- RR; Lungs- CTA B; Abd- benign; Ext- no sign of DVT Speech fluent, memory better CN- decreased peripheral vision OD > OS, face symmetric, tongue midline; Motor- 5/5 strength without drift; Sensation- intact LT; DTR- hyporeflexic; Cerebellar- intact B FTN BUN/Cr better Head CT- B occipital hypodensity with no significant mass effect; R parietal craniotomy; R frontal convexity minimal hyperdensity CTA head-neck: No aneurysm or AVM; no significant enhancing lesion Brain MRI (prelim): stable or slightly smaller B temporal, R frontal and cerebellar/occipital lesions; fainter enhancement R frontal and B temporal lesions; no significant edema; no ischemia Metastatic brain NSC mets, lung primary: no neurosurgical intervention indicated Mild dehydration DM with peripheral neuropathy B occipital non-enhancing CT hypodensity- most c/w post-RT changes and encephalomalacia Maintain hydration Check cultures result D/w Dr. Anirudh Haro
[2020-04-23] MEDS ORDERED: LIDOCAINE VISCOUS 2% ORAL/TOP 20 ML UNIT-DOSE CUP MM PRN (13:27)
[2020-04-23 14:08] VITALS: BP 104/63; PULSE 65
--- NOTE | 2020-04-23 15:01 | DS ---
Physical Exam: SUBJECTIVE: Patient seen and examined. Feeling well. Brief periods of confusion but easily redirected by staff, son. OBJECTIVE: Vital Signs Period Temp Pulse Resp BP Sys/Iraheta Pulse Ox Last 24 Hr 97.7 F-97.7 F 65-84 18-19 104-122/63-79 93-100 PHYSICAL EXAM GENERAL: The patient is awake, alert, and fully oriented, in no acute distress. HEAD: Normal with no signs of trauma. EYES: PERRL, extraocular movements intact, sclera anicteric, conjunctiva clear. ENT: Ears normal, nares patent, oropharynx clear without exudates, moist mucous membranes. NECK: Trachea midline, full range of motion, supple. LUNGS: Breath sounds equal, clear to auscultation bilaterally, no wheezes, no crackles, no accessory muscle use. HEART: Regular rate and rhythm, S1, S2 without murmur, rub or gallop. ABDOMEN: Soft, nontender, nondistended, normoactive bowel sounds, no guarding, no rebound, no hepatosplenomegaly, no masses. EXTREMITIES: 2+ pulses, warm, well-perfused, no edema. NEUROLOGICAL: Cranial nerves II through XII grossly intact. Normal speech, gait not observed. PSYCH: Normal mood, normal affect. SKIN: Warm, dry, normal turgor, no rashes or lesions noted. LABS Laboratory Results - last 24 hr 04/22/20 04/22/20 04/22/20 13:56 13:56 13:56 WBC RBC Hgb Hct MCV MCH MCHC RDW Plt Count MPV Absolute Neuts (auto) Neutrophils % Lymphocytes % Monocytes % Eosinophils % Basophils % Sodium Potassium Chloride Carbon Dioxide Anion Gap BUN Creatinine Est GFR (CKD-EPI)AfAm Est GFR (CKD-EPI)NonAf POC Glucometer Random Glucose Lactic Acid 4.5 H* Uric Acid Calcium Phosphorus Magnesium Total Bilirubin AST ALT Alkaline Phosphatase B-Natriuretic Peptide 560.0 H Total Protein Albumin Triglycerides Cholesterol Total LDL Cholesterol HDL Cholesterol TSH 2.96 Urine Color Urine Appearance Urine pH Urine Protein Urine Glucose (UA) Urine Ketones Urine Blood Urine Nitrite Urine Bilirubin Urine Urobilinogen Ur Leukocyte Esterase Urine RBC Urine WBC Ur Transition Epith Cell Urine Bacteria Blood Type O POSITIVE Antibody Screen Negative 04/22/20 04/22/20 04/23/20 14:45 14:52 06:31 WBC RBC Hgb Hct MCV MCH MCHC RDW Plt Count MPV Absolute Neuts (auto) Neutrophils % Lymphocytes % Monocytes % Eosinophils % Basophils % Sodium Potassium Chloride Carbon Dioxide Anion Gap BUN Creatinine Est GFR (CKD-EPI)AfAm Est GFR (CKD-EPI)NonAf POC Glucometer 125 Random Glucose Lactic Acid Uric Acid 4.0 Calcium Phosphorus 2.8 Magnesium Total Bilirubin AST ALT Alkaline Phosphatase B-Natriuretic Peptide Total Protein Albumin Triglycerides Cholesterol Total LDL Cholesterol HDL Cholesterol TSH Urine Color Yellow Urine Appearance Clear Urine pH 5.5 Urine Protein Negative Urine Glucose (UA) Trace Urine Ketones Negative Urine Blood Trace-intact Urine Nitrite Positive Urine Bilirubin Negative Urine Urobilinogen 0.2 Ur Leukocyte Esterase Negative Urine RBC 2-5 Urine WBC Rare Ur Transition Epith Cell Rare Urine Bacteria Moderate Blood Type Antibody Screen 04/23/20 04/23/20 04/23/20 06:50 06:59 06:59 WBC 3.6 L RBC 4.29 Hgb 12.1 Hct 38.0 MCV 88.6 MCH 28.3 MCHC 32.0 RDW 17.1 H Plt Count 188 D MPV 7.1 L Absolute Neuts (auto) 2.2 Neutrophils % 60.3 D Lymphocytes % 35.7 D Monocytes % 2.9 L Eosinophils % 0.4 Basophils % 0.7 Sodium 135 L Potassium 4.3 Chloride 97 L Carbon Dioxide 29 Anion Gap 9 BUN 17.0 Creatinine 0.8 Est GFR (CKD-EPI)AfAm 102.71 Est GFR (CKD-EPI)NonAf 88.62 POC Glucometer Random Glucose 126 H Lactic Acid 2.0 Uric Acid Calcium 8.2 L Phosphorus Magnesium 1.6 L Total Bilirubin 0.6 AST 28 ALT 35 Alkaline Phosphatase 48 D B-Natriuretic Peptide Total Protein 5.5 L Albumin 3.0 L Triglycerides 55 Cholesterol 105 Total LDL Cholesterol 45 HDL Cholesterol 49 TSH Urine Color Urine Appearance Urine pH Urine Protein Urine Glucose (UA) Urine Ketones Urine Blood Urine Nitrite Urine Bilirubin Urine Urobilinogen Ur Leukocyte Esterase Urine RBC Urine WBC Ur Transition Epith Cell Urine Bacteria Blood Type Antibody Screen 04/23/20 11:55 WBC RBC Hgb Hct MCV MCH MCHC RDW Plt Count MPV Absolute Neuts (auto) Neutrophils % Lymphocytes % Monocytes % Eosinophils % Basophils % Sodium Potassium Chloride Carbon Dioxide Anion Gap BUN Creatinine Est GFR (CKD-EPI)AfAm Est GFR (CKD-EPI)NonAf POC Glucometer 126 Random Glucose Lactic Acid Uric Acid Calcium Phosphorus Magnesium Total Bilirubin AST ALT Alkaline Phosphatase B-Natriuretic Peptide Total Protein Albumin Triglycerides Cholesterol Total LDL Cholesterol HDL Cholesterol TSH Urine Color Urine Appearance Urine pH Urine Protein Urine Glucose (UA) Urine Ketones Urine Blood Urine Nitrite Urine Bilirubin Urine Urobilinogen Ur Leukocyte Esterase Urine RBC Urine WBC Ur Transition Epith Cell Urine Bacteria Blood Type Antibody Screen HOSPITAL COURSE: 74-year-old male CAD s/p stent , T2DM with peripheral europathy, HTN, urethral stricture/chronic retention, 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 1. AMS -Possibly secondary to UTI, dehydration -Improved following treatment of above -MRI brain with/without contrast reviewed and notable for small acute enhancing, hemorrhagic right cerebellar lesion - images were reviewed by his neuro- oncologist at [facility] and neurosurgery here and appears improved when compared to prior (of note, physician son at bedside states he was determined at [facility] tumor board to not have leptomeningeal disease) 2. UTI -On Rocephin (04/22 -) -Dc on 10 day course Keflex pending culture result 3. Seizure prophylaxis -Continue Keppra 750mg bid, Vimpat 100mg bid 4. Hypomagnesemia -Repleted with 1g IVPB -Rx Slo Mag 5. CAD -Hold ASA given hemorrhagic metastasis 6. Lactic acidemia -Resolved with hydration 7. Hypertension -At goal -Hold Losartan 8. Mucositis -Gelclair swish and spit tid 9. Urinary retention -400mL post-void residual today -Per son and Dr. Colbert, no intervention 10. DM -Resume Metformin DISPO: Dc to home with PT. Family available to assist in care. Discussed with Dr. Mac and Dr Lake. Date of Admission:04/22/20 Date of Discharge: 04/23/20 Minutes to complete discharge: 35 Discharge Summary Problems reviewed: Yes Reason For Visit: SUBARACHNOID HEMORRHAGE/ALTERED MENTAL STATUS Current Active Problems UTI (urinary tract infection) (Acute) UTI (urinary tract infection) (Acute) CAD (coronary artery disease) (Chronic) Complex partial seizure (Chronic) HTN (hypertension) (Chronic) Hypomagnesemia (Chronic) Subarachnoid bleed (Chronic) T2DM (type 2 diabetes mellitus) (Chronic) Condition: Improved - Instructions Diet, Activity, Other Instructions: -Take Keflex as prescribed for urinary tract infection for the full course -Take Slo-Mag (magnesium supplement) as prescribed -Stop taking Losartan -Use Gel Daniela rinse 3 times a day or as needed for mouth sores -Follow up with your oncology and neuro-oncology teams at [facility] regarding your treatment plan -Return here for sudden/severe headache, confusion, weakness, or any other concerning symptoms Referrals: ON STAFF,NOT [Primary Care Provider] - Disposition: TRANSFER ACUTE CARE/OTHER HOSP - Home Medications Comprehensive Discharge Medication List: Ambulatory Orders Aspirin [ASA -] 81 mg PO DAILY 04/22/20 Atorvastatin Ca [Lipitor] 20 mg PO HS 04/22/20 Dexamethasone 2 mg PO BID 04/22/20 Lacosamide [Vimpat] 100 mg PO BID 04/22/20 Levothyroxine [Synthroid -] 75 mcg PO DAILY 04/22/20 Metformin HCl [Glucophage] 1,000 mg PO BID 04/22/20 Multivitamins [Multivit ([facility] Formulary)] 1 tab PO DAILY 04/22/20 Omeprazole 40 mg PO DAILY 04/22/20 levETIRAcetam [Keppra -] 750 mg PO BID 04/22/20 Atorvastatin Ca [Lipitor] 20 mg PO HS tablet 04/23/20 Cephalexin [Keflex] 500 mg PO BID #20 capsule 04/23/20 Dexamethasone [Decadron -] 2 mg PO BID tablet 04/23/20 Lacosamide [Vimpat -] 100 mg PO BID tab 04/23/20 Levothyroxine [Synthroid -] 75 mcg PO ACBK tablet 04/23/20 Magnesium Chloride [Slow-Mag -] 64 mg PO BID #30 tablet.sa 04/23/20 Pot Sor/He-Cellulos/Pov/Hyalur [Gelclair Oral Gel Packet] 15 ml MM TID #30 gel.packet 04/23/20 levETIRAcetam [Keppra -] 750 mg PO BID tablet 04/23/20 This patient is new to me today: No Emergency Visit: Yes ED Registration Date: 04/22/20 Care time: The patient presented to the Emergency Department on the above date and was hospitalized for further evaluation of their emergent condition. Critical Care patient: No - Discharge Referral Referred to [facility] Med P.C.: No
--- NOTE | 2020-04-23 17:38 | PN ---
Progress Note (short form) - Note Progress Note: Confusion and ataxic gait HPI 74 year old male history of CAD, dm,Neuropathy, HTN, Non small cell lung cancer with brain mets. He has right fronto parietal craniotomy, seizure, and getting chemo at [facility]. Last chemo was on april 19. Patient came withfeeling of lightheadedness and, confusion and difficulty walking. Patinet has ct scan showed, there is ? sah on right frontal and bilateral occpital area lesion ? radiotion induced injury vs old lesion. Patient has been feeling better, he has dehydration, and uti. He was given abx. Patient was seen with his son at bed side, both of them work at [employer]. There has not been any high grade fever, flu like symptoms or seizure . There is no headache. He has cta and tehre is no evidence of Aneurysm. He has been on two aed and stable dose , last seizure two years ago. He is taking dexamethasone 2 mg po bid much more improved this am, mri of brain reviewed, neurosurgery consult appreciated. NEUROLOGICAL EXAMINATION Alert oriented x 3, more alert today neck is supple, speech is normal, vital stable eomi, pupils reactive no face asymmetry moving all ext ct head reviewed there is right ? mild sah and craniotomy there is bilateral occpital cta no aneursm mri of brain reviewed , spoke to [employer] and mri of brain was reviewed with motefiore and , appearance seems to be improved. Assessment/Plan 74 year old male history of CAD, dm,Neuropathy, HTN, Non small cell lung cancer with brain mets. Admitted for transient confusion, difficulty walking feeling better after iv fluid and abx. Clinically unlikley to be meningitis, tia or seizure Plan: continue keppra 750 mg po bid and lacosamide 100 mg po bid - continue oral abx - mri of brain with and without contrast report appreciated. - agree wt d/c and follow up outpatient. Thanking you so much
--- NOTE | 2020-04-23 19:56 | CONS ---
DATE OF CONSULTATION: DATE OF DICTATION: 04/23/2020 REQUESTING PHYSICIAN: Dr. Hawley [employer] TENDER: Tayo Lake MD, Neurosurgery CHIEF COMPLAINT: Brain metastasis. HISTORY OF PRESENT ILLNESS: Patient is a 74-year-old, right-handed male with history of squamous cell carcinoma of lung, metastatic to the brain, status post right parietal craniotomy and chemotherapy, who complains of increasing confusion, dizziness, and inability to ambulate yesterday. The patient, in retrospect, stated that his condition has worsened over the past week or so. According to the family, the patient's condition has deteriorated over the past couple of days also. The patient denies any headache, nausea, or vomiting. He did have multiple loose bowel movements today with some blood in the rectum and toilet bowl. He also felt dizzy, but that is not unusual. He has blurred vision which is at baseline. He has a history of retinal detachment. He has difficulty getting up because of weakness yesterday. He has no seizure activity recently. There is no fever, chill, coughs, recent infection, trauma or falls. His son is at the bedside for the examination. PAST MEDICAL HISTORY: Significant for non-small cell carcinoma (squamous cell carcinoma) in the lung, metastatic to the brain; diabetes with peripheral neuropathy; retinal detachment; a craniotomy for tumor; chemotherapy treatment; hypothyroidism; hypertension; and coronary artery disease, status post stent placement. CURRENT MEDICATIONS: Include ceftriaxone, Vimpat, Keppra, Decadron, Lipitor, insulin, vitamins, Protonix, Synthroid. ALLERGY: There is no known drug allergy. FAMILY HISTORY: Noncontributory. SOCIAL HISTORY: He used to smoke. He drinks alcohol socially. He lives at home with family. He is retired. REVIEW OF SYSTEMS: Otherwise negative for other major constitutional, head and neck, cardiovascular, pulmonary, gastrointestinal, genitourinary, endocrinological, neurological, and psychological problems except for the above. PHYSICAL EXAMINATION: Vital Signs: Temperature is 97.7. Blood pressure is 107/64 with pulse rate of 73. O2 saturation is 93% to 100% on room air. HEENT: Shows him to be normocephalic, atraumatic, anicteric. Neck: Supple with no lymphadenopathy. No carotid bruit. Coronary: Examination demonstrates regular rhythm. Lungs: Show decreased breath sounds at the bases. Abdomen: Benign. Extremities: Examination shows no signs of DVT. Neurologic: He is awake, alert, oriented x2. He thought it was April 20 when, in fact, it was April 22. Otherwise, his speech is fluent. Cranial nerve examination intact 2-12 except for decreased right nasal field vision in the left eye. Motor examination shows 5/5 strength without drift. Sensory examination intact to light touch. Deep tendon reflexes hyporeflexic throughout. There is no pathological long tract sign. Gait is not tested for safety reasons. Cerebellar examination demonstrates intact [id number] examination bilaterally. LABORATORY: Examination shows a white blood cell count of 4.5, hemoglobin is 14.4, platelet count is 245,000. INR is 1.06, and PTT is 21.6. Serum sodium is 136 and potassium 3.8. BUN is 26 and creatinine 1.0. LFTs are normal. Magnesium 1.3. Lactic acid is 4.5. Urinalysis shows 2-5 RBCs and rare WBCs; leukocyte esterase was negative. COVID-[address] scan of the head demonstrates bilateral occipital hypodensity. There is mild cerebral atrophy. There is a slight, faint hyperdensity in the right frontal convexity. CTA of the head was negative for aneurysm or AVM. IMPRESSION: 1. Metastatic non-small cell carcinoma of the lung to the brain. 2. Hypertension/coronary artery disease. 3. Diabetes with peripheral neuropathy. 4. Hypothyroidism. RECOMMENDATIONS: Patient presents with confusion, weakness, and dizziness. His symptoms have worsened over the past week or so. He has no current headache, nausea, or vomiting. He has no other signs of increased intracranial pressure. By the time of my neurosurgical evaluation, his symptoms had improved somewhat after some hydration. He was put on ceftriaxone for prophylaxis. Blood culture and urine culture are still pending. The patient should be hydrated and maintain good nutrition. A brain MRI is recommended to better delineate intracerebral lesions. This is also to rule out acute ischemia. A copy of the patient's prior brain MRI report from February was also reviewed. At that point, the patient had multiple intracranial metastatic lesions. The appearance could have been altered by the chemotherapy treatment as well as the prior radiation treatment. No neurosurgical intervention is indicated nor recommended at this time. Further recommendation will be made upon availability of the brain MRI examination. All questions were answered at bedside. Paulina [id number]
== END 2020-04-23 15:59 | disposition home health service (06) | DRG 689 ==
LOC: FER 13:28 → FM/S 15:16
PROVIDERS: ADMIT Internal Medicine; ATTEND Registered Nurse Emergency
DX: N39.0 Urinary tract infection, site not specified (principal); I60.9 Nontraumatic subarachnoid hemorrhage, unspecified; G93.41 Metabolic encephalopathy; C34.90 Malignant neoplasm of unspecified part of unspecified bronchus or lung; C79.31 Secondary malignant neoplasm of brain; E87.2 Acidosis; I25.10 Atherosclerotic heart disease of native coronary artery without angina pectoris; E11.9 Type 2 diabetes mellitus without complications; R26.0 Ataxic gait; E83.42 Hypomagnesemia; E11.40 Type 2 diabetes mellitus with diabetic neuropathy, unspecified; E86.0 Dehydration; R56.9 Unspecified convulsions; Z95.5 Presence of coronary angioplasty implant and graft; R41.82 Altered mental status, unspecified; R33.9 Retention of urine, unspecified; I10 Essential (primary) hypertension
CPT/HCPCS: 36415; 70450-TC; 70496-TC; 70498-TC; 70553-TC; 71045-TC-FY; 80053; 80061; 81003; 81015; 82550; 82607; 82746; 82962; 83605; 83735; 83880; 84100; 84443; 84484; 84550; 85025; 85610; 85730; 86850; 86900; 86901; 87040; 87086; 93005; 97116-GP; 97161-GP; 99291; A9579; J8540; Q9967; U0003

== ENCOUNTER 2020-07-31 16:08 | Inpatient (IN) | payer OTHER ==
[2020-07-31] MEDS ORDERED: SODIUM CHLORIDE 0.9% 500 ML INFUS.BAG IV ONE (16:51)
[2020-07-31 17:11] LABS: BASO % 0.6 % (0-2.0)
[2020-07-31 17:16] LABS: EOS % 0.5 % (0-4.5); HEMATOCRIT 43.1 % (35.4-49); HEMOGLOBIN 14.1 GM/dl (11.7-16.9); LYMPH % 21.6 % (8-40); MCH 30.7 pg (25.7-33.7); MCHC 32.8 g/dl (32.0-35.9); MEAN CELL VOLUME 93.7 fl (80-96); MEAN PLT VOLUME 7.7 fl (7.5-11.1); NEUT % 71.3 % (42.8-82.8); PLATELET COUNT 404 K/MM3 (134-434); RDW 14.7 % (11.9-15.9); WHITE BLOOD COUNT 14.6 K/mm3 (4.0-10.8)
[2020-07-31 17:28] LABS: ACTIVATED PTT 27.5 SECONDS (25.2-36.5)
[2020-07-31 17:29] LABS: ALBUMIN 3.2 g/dl (3.4-5.0); BILIRUBIN,TOTAL 1.1 mg/dl (0.2-1); CALCIUM 9.5 mg/dl (8.5-10); CREATININE 1.2 mg/dl (0.55-1.3); POTASSIUM 4.7 mmol/L (3.5-5.1); TOT PROT 6.4 g/dl (6.4-8.2)
[2020-07-31 17:33] LABS: INR 1.12 (0.82-1.09); PROTHROMBIN TIME (PATIENT) 12.4 SEC (10.2-13.0)
[2020-07-31] MEDS ORDERED: levETIRAcetam 500 MG/5 ML INJECTION VIAL IVPB ONE ×2 (17:55→18:07)
[2020-07-31] MEDS ORDERED: DEXAMETHASONE SOD PHOSPHATE 4 MG/1 ML VIAL IVPUSH ONE ×2 (19:15→20:27)
[2020-07-31] MEDS ORDERED: DEXAMETHASONE SOD PHOSPHATE 4 MG/1 ML VIAL ONE (19:19)
[2020-07-31] MEDS: LACOSAMIDE 50 MG TABLET PO SCH (21:28)
[2020-07-31] MEDS: SODIUM CHLORIDE 1,000 ML IV SCH (21:28)
[2020-07-31] MEDS ORDERED: DEXAMETHASONE 4 MG TABLET (FP) PO SCH ×2 (22:00)
[2020-07-31] MEDS: INSULIN SLIDING SCALE (NOVOLOG) 1 VIAL SQ SCH (22:10)
[2020-08-01] MEDS: INSULIN SLIDING SCALE (NOVOLOG) 1 VIAL SQ SCH ×4 (06:49→22:10)
[2020-08-01] MEDS ORDERED: LEVOTHYROXINE NA 75 MCG TABLET (FP) PO SCH (07:00)
[2020-08-01] MEDS ORDERED: PANTOPRAZOLE 20 MG TABLET PO SCH (10:00)
[2020-08-01] MEDS ORDERED: LEVOTHYROXINE SODIUM 100 MCG VIAL IVPUSH SCH (10:00)
[2020-08-01] MEDS: DEXAMETHASONE 4 MG TABLET (FP) PO SCH ×2 (10:54→11:25)
[2020-08-01] MEDS: LACTULOSE 20 GM/30 ML UDC (FOR ORAL USE ONLY) PO SCH ×3 (10:54→21:43)
[2020-08-01] MEDS: levETIRAcetam 500 MG/5 ML INJECTION VIAL IVPB SCH ×2 (10:55→21:43)
[2020-08-01] MEDS: LACOSAMIDE 50 MG TABLET PO SCH ×2 (10:56→21:44)
[2020-08-01] MEDS: ATORVASTATIN CA 20 MG TABLET (FP) PO SCH ×2 (10:56→12:07)
[2020-08-01] MEDS: MAGNESIUM OXIDE 400 MG TABLET (FP) PO SCH ×2 (10:56→11:25)
[2020-08-01] MEDS: ASPIRIN 81 MG CHEWABLE TABLETS PO SCH (10:56)
[2020-08-01 11:17] LABS: BASO % 0.8 % (0-2.0); EOS % 0.1 % (0-4.5); HEMATOCRIT 41.1 % (35.4-49); HEMOGLOBIN 13.3 GM/dl (11.7-16.9); LYMPH % 13.5 % (8-40); MCH 30.5 pg (25.7-33.7); MCHC 32.4 g/dl (32.0-35.9); MEAN CELL VOLUME 94.4 fl (80-96); MEAN PLT VOLUME 7.5 fl (7.5-11.1); MONO % 5.9 % (3.8-10.2); NEUT % 79.7 % (42.8-82.8); PLATELET COUNT 341 K/MM3 (134-434); RBC 4.35 M/mm3 (4.00-5.60); RDW 14.7 % (11.9-15.9); WHITE BLOOD COUNT 14.8 K/mm3 (4.0-10.8)
[2020-08-01 11:28] LABS: CREATININE 0.9 mg/dl (0.55-1.3); POTASSIUM 4.1 mmol/L (3.5-5.1)
[2020-08-01 11:35] LABS: BILIRUBIN,DIRECT 0.5 mg/dL (0.0-0.2); BILIRUBIN,TOTAL 1.1 mg/dl (0.2-1); TOT PROT 5.9 g/dl (6.4-8.2)
[2020-08-01] MEDS: PANTOPRAZOLE SODIUM 40 MG VIAL IVPUSH SCH (11:40)
[2020-08-01] MEDS: DEXAMETHASONE SOD PHOSPHATE 4 MG/1 ML VIAL IVPUSH SCH ×2 (11:40→21:44)
[2020-08-01] MEDS: COLLAGENASE CLOSTRIDIUM HIST. 30 GRAMS TUBE TP SCH (11:42)
[2020-08-01 15:53] VITALS: BMI 26.9
[2020-08-01] MEDS: SODIUM CHLORIDE 1,000 ML IV SCH (20:43)
[2020-08-01] MEDS ORDERED: DEXAMETHASONE SOD PHOSPHATE 4 MG/1 ML VIAL IVPUSH SCH (22:00)
[2020-08-02 09:05] LABS: HEMATOCRIT 36.5 % (35.4-49); HEMOGLOBIN 11.9 GM/dl (11.7-16.9); MCH 29.9 pg (25.7-33.7); MCHC 32.6 g/dl (32.0-35.9); MEAN CELL VOLUME 91.9 fl (80-96); PLATELET COUNT 352 K/MM3 (134-434); RBC 3.98 M/mm3 (4.00-5.60); RDW 14.9 % (11.9-15.9); WHITE BLOOD COUNT 12.7 K/mm3 (4.0-10.8)
[2020-08-02 09:11] LABS: ALBUMIN 2.7 g/dl (3.4-5.0); BILIRUBIN,DIRECT 0.4 mg/dL (0.0-0.2); CALCIUM 8.7 mg/dl (8.5-10); CREATININE 0.8 mg/dl (0.55-1.3); MAGNESIUM 1.7 mg/dL (1.8-2.4); POTASSIUM 4.4 mmol/L (3.5-5.1); TOT PROT 5.5 g/dl (6.4-8.2)
[2020-08-02 09:17] LABS: ADD RBC MORPHOLOGY YES
[2020-08-02] MEDS: ASPIRIN 81 MG CHEWABLE TABLETS PO SCH (09:24)
[2020-08-02] MEDS: levETIRAcetam 500 MG/5 ML INJECTION VIAL IVPB SCH ×2 (09:24→21:14)
[2020-08-02] MEDS: LACOSAMIDE 50 MG TABLET PO SCH ×2 (09:24→21:20)
[2020-08-02] MEDS: DEXAMETHASONE SOD PHOSPHATE 4 MG/1 ML VIAL IVPUSH SCH ×2 (09:27→21:14)
[2020-08-02] MEDS: PANTOPRAZOLE SODIUM 40 MG VIAL IVPUSH SCH (09:27)
[2020-08-02] MEDS: LEVOTHYROXINE SODIUM 100 MCG VIAL IVPUSH SCH (09:46)
[2020-08-02] MEDS: INSULIN SLIDING SCALE (NOVOLOG) 1 VIAL SQ SCH ×4 (09:48→21:28)
[2020-08-02] MEDS: COLLAGENASE CLOSTRIDIUM HIST. 30 GRAMS TUBE TP SCH (09:48)
[2020-08-02 09:52] LABS: ANISOCYTOSIS 1+; PLATELET ESTIMATE ADEQUATE
[2020-08-02] MEDS: POLYETHYLENE GLYCOL 3350 119 GM BTL PO SCH ×2 (11:30→21:31)
[2020-08-02] MEDS ORDERED: ENOXAPARIN NA (PORCINE) 40 MG/0.4 ML DISP.SYRIN SQ SCH (13:15)
[2020-08-02] MEDS: SODIUM CHLORIDE 1,000 ML IV SCH (21:12)
[2020-08-03 07:55] LABS: BASO % 1.9 % (0-2.0); EOS % 0.1 % (0-4.5); HEMATOCRIT 36.4 % (35.4-49); HEMOGLOBIN 11.9 GM/dl (11.7-16.9); LYMPH % 16.2 % (8-40); MCH 30.2 pg (25.7-33.7); MCHC 32.6 g/dl (32.0-35.9); MEAN CELL VOLUME 92.9 fl (80-96); MEAN PLT VOLUME 7.8 fl (7.5-11.1); MONO % 4.5 % (3.8-10.2); NEUT % 77.3 % (42.8-82.8); PLATELET COUNT 332 K/MM3 (134-434); RBC 3.92 M/mm3 (4.00-5.60); RDW 14.7 % (11.9-15.9); WHITE BLOOD COUNT 11.6 K/mm3 (4.0-10.8)
[2020-08-03 08:00] LABS: ALBUMIN 2.7 g/dl (3.4-5.0); BILIRUBIN,DIRECT 0.4 mg/dL (0.0-0.2); BILIRUBIN,TOTAL 0.9 mg/dl (0.2-1); CALCIUM 8.5 mg/dl (8.5-10); CREATININE 0.8 mg/dl (0.55-1.3); MAGNESIUM 1.6 mg/dL (1.8-2.4); POTASSIUM 4.2 mmol/L (3.5-5.1); TOT PROT 5.3 g/dl (6.4-8.2)
[2020-08-03] MEDS: ASPIRIN 81 MG CHEWABLE TABLETS PO SCH (09:19)
[2020-08-03] MEDS: LACOSAMIDE 50 MG TABLET PO SCH ×2 (09:19→21:18)
[2020-08-03] MEDS: POLYETHYLENE GLYCOL 3350 119 GM BTL PO SCH ×2 (09:20→21:17)
[2020-08-03] MEDS: PANTOPRAZOLE SODIUM 40 MG VIAL IVPUSH SCH (09:20)
[2020-08-03] MEDS: LEVOTHYROXINE SODIUM 100 MCG VIAL IVPUSH SCH (09:20)
[2020-08-03] MEDS: DEXAMETHASONE SOD PHOSPHATE 4 MG/1 ML VIAL IVPUSH SCH ×2 (09:21→21:18)
[2020-08-03] MEDS: levETIRAcetam 500 MG/5 ML INJECTION VIAL IVPB SCH ×2 (09:22→21:20)
[2020-08-03] MEDS: COLLAGENASE CLOSTRIDIUM HIST. 30 GRAMS TUBE TP SCH (09:22)
[2020-08-03] MEDS: INSULIN SLIDING SCALE (NOVOLOG) 1 VIAL SQ SCH ×2 (09:28→11:14)
[2020-08-03] MEDS ORDERED: INSULIN SLIDING SCALE (NOVOLOG) 1 VIAL SQ PRN (13:10)
[2020-08-03] MEDS: SODIUM CHLORIDE 1,000 ML IV SCH (19:54)
[2020-08-04] MEDS: PANTOPRAZOLE SODIUM 40 MG VIAL IVPUSH SCH (09:11)
[2020-08-04] MEDS: LEVOTHYROXINE SODIUM 100 MCG VIAL IVPUSH SCH (09:11)
[2020-08-04] MEDS: POLYETHYLENE GLYCOL 3350 119 GM BTL PO SCH ×2 (09:12→21:08)
[2020-08-04] MEDS: COLLAGENASE CLOSTRIDIUM HIST. 30 GRAMS TUBE TP SCH (09:12)
[2020-08-04] MEDS: DEXAMETHASONE SOD PHOSPHATE 4 MG/1 ML VIAL IVPUSH SCH ×2 (09:13→21:07)
[2020-08-04] MEDS: LACOSAMIDE 50 MG TABLET PO SCH ×2 (09:13→21:08)
[2020-08-04] MEDS: ASPIRIN 81 MG CHEWABLE TABLETS PO SCH (09:13)
[2020-08-04] MEDS: levETIRAcetam 500 MG/5 ML INJECTION VIAL IVPB SCH ×2 (09:13→21:07)
[2020-08-04] MEDS: SODIUM CHLORIDE 1,000 ML IV SCH (21:06)
[2020-08-05] MEDS: DEXAMETHASONE SOD PHOSPHATE 4 MG/1 ML VIAL IVPUSH SCH ×2 (09:51→21:15)
[2020-08-05] MEDS: POLYETHYLENE GLYCOL 3350 119 GM BTL PO SCH ×2 (09:51→21:16)
[2020-08-05] MEDS: ASPIRIN 81 MG CHEWABLE TABLETS PO SCH (09:51)
[2020-08-05] MEDS: PANTOPRAZOLE SODIUM 40 MG VIAL IVPUSH SCH (09:51)
[2020-08-05] MEDS: levETIRAcetam 500 MG/5 ML INJECTION VIAL IVPB SCH ×2 (09:51→21:15)
[2020-08-05] MEDS: LEVOTHYROXINE SODIUM 100 MCG VIAL IVPUSH SCH (09:52)
[2020-08-05] MEDS: LACOSAMIDE 50 MG TABLET PO SCH ×2 (09:52→21:16)
[2020-08-05] MEDS: COLLAGENASE CLOSTRIDIUM HIST. 30 GRAMS TUBE TP SCH (10:49)
[2020-08-05] MEDS: SODIUM CHLORIDE 1,000 ML IV SCH (18:20)
[2020-08-06 08:28] LABS: ALBUMIN 2.9 g/dl (3.4-5.0); BILIRUBIN,TOTAL 1.4 mg/dl (0.2-1); CALCIUM 8.9 mg/dl (8.5-10); CREATININE 0.8 mg/dl (0.55-1.3); MAGNESIUM 1.6 mg/dL (1.8-2.4); POTASSIUM 4.3 mmol/L (3.5-5.1); TOT PROT 6.1 g/dl (6.4-8.2)
[2020-08-06] MEDS ORDERED: MAGNESIUM SULF 50% (8.12 MEQ/2 ML-1 GM VIAL) IVPB ONE (09:04)
[2020-08-06] MEDS ORDERED: MAGNESIUM SULFATE IN WATER 2 GM/50 ML IVPB IVPB ONE (09:30)
[2020-08-06] MEDS: LACOSAMIDE 50 MG TABLET PO SCH ×2 (09:34→21:01)
[2020-08-06] MEDS: ASPIRIN 81 MG CHEWABLE TABLETS PO SCH (09:34)
[2020-08-06] MEDS: levETIRAcetam 500 MG/5 ML INJECTION VIAL IVPB SCH ×2 (09:34→21:01)
[2020-08-06] MEDS: PANTOPRAZOLE SODIUM 40 MG VIAL IVPUSH SCH (09:34)
[2020-08-06] MEDS: COLLAGENASE CLOSTRIDIUM HIST. 30 GRAMS TUBE TP SCH (09:35)
[2020-08-06] MEDS: POLYETHYLENE GLYCOL 3350 119 GM BTL PO SCH ×2 (09:35→21:02)
[2020-08-06] MEDS: DEXAMETHASONE SOD PHOSPHATE 4 MG/1 ML VIAL IVPUSH SCH ×2 (09:35→21:01)
[2020-08-06] MEDS: LEVOTHYROXINE SODIUM 100 MCG VIAL IVPUSH SCH (09:37)
[2020-08-06 09:59] LABS: BASO % 0.5 % (0-2.0); EOS % 0.1 % (0-4.5); HEMATOCRIT 45.3 % (35.4-49); HEMOGLOBIN 14.7 GM/dL (11.7-16.9); LYMPH % 16.3 % (8-40); MCH 29.7 pg (25.7-33.7); MCHC 32.4 g/dl (32.0-35.9); MEAN CELL VOLUME 91.4 fl (80-96); MEAN PLT VOLUME 8.7 fl (7.5-11.1); MONO % 6.6 % (3.8-10.2); NEUT % 76.5 % (42.8-82.8); PLATELET COUNT 380 K/MM3 (134-434); RBC 4.95 M/mm3 (4.00-5.60); RDW 16.1 % (11.9-15.9); WHITE BLOOD COUNT 16.3 K/mm3 (4.0-10.0)
[2020-08-06] MEDS ORDERED: LACOSAMIDE 50 MG TABLET PO ONE (12:40)
[2020-08-06 12:58] LABS: ANISOCYTOSIS 1+; MACROCYTOSIS 0; PLATELET ESTIMATE NORMAL
[2020-08-06] MEDS: SODIUM CHLORIDE 1,000 ML IV SCH (21:00)
[2020-08-07 08:21] LABS: BASO % 0.7 % (0-2.0); EOS % 0.1 % (0-4.5); HEMATOCRIT 44.7 % (35.4-49); HEMOGLOBIN 14.4 GM/dl (11.7-16.9); LYMPH % 12.7 % (8-40); MCH 30.1 pg (25.7-33.7); MCHC 32.3 g/dl (32.0-35.9); MEAN CELL VOLUME 93.2 fl (80-96); MONO % 4.4 % (3.8-10.2); NEUT % 82.1 % (42.8-82.8); PLATELET COUNT 376 K/MM3 (134-434); RDW 15.4 % (11.9-15.9); WHITE BLOOD COUNT 18.5 K/mm3 (4.0-10.8)
[2020-08-07 08:27] LABS: ALBUMIN 2.9 g/dl (3.4-5.0); BILIRUBIN,TOTAL 1.6 mg/dl (0.2-1); CALCIUM 8.8 mg/dl (8.5-10); CREATININE 0.9 mg/dl (0.55-1.3); POTASSIUM 4.5 mmol/L (3.5-5.1)
[2020-08-07] MEDS: ASPIRIN 81 MG CHEWABLE TABLETS PO SCH (09:57)
[2020-08-07] MEDS: DEXAMETHASONE SOD PHOSPHATE 4 MG/1 ML VIAL IVPUSH SCH ×2 (09:57→21:05)
[2020-08-07] MEDS: levETIRAcetam 500 MG/5 ML INJECTION VIAL IVPB SCH ×2 (09:58→21:05)
[2020-08-07] MEDS: POLYETHYLENE GLYCOL 3350 119 GM BTL PO SCH ×2 (09:58→21:07)
[2020-08-07] MEDS: LEVOTHYROXINE SODIUM 100 MCG VIAL IVPUSH SCH (09:59)
[2020-08-07] MEDS: PANTOPRAZOLE SODIUM 40 MG VIAL IVPUSH SCH (09:59)
[2020-08-07] MEDS: COLLAGENASE CLOSTRIDIUM HIST. 30 GRAMS TUBE TP SCH (09:59)
[2020-08-07] MEDS: LACOSAMIDE 50 MG TABLET PO SCH ×2 (10:00→21:05)
[2020-08-07] MEDS: SODIUM CHLORIDE 1,000 ML IV SCH (21:06)
[2020-08-08] MEDS: DEXAMETHASONE SOD PHOSPHATE 4 MG/1 ML VIAL IVPUSH SCH ×2 (09:34→21:16)
[2020-08-08] MEDS: ASPIRIN 81 MG CHEWABLE TABLETS PO SCH (09:37)
[2020-08-08] MEDS: LACOSAMIDE 50 MG TABLET PO SCH ×2 (09:37→21:16)
[2020-08-08] MEDS: PANTOPRAZOLE SODIUM 40 MG VIAL IVPUSH SCH (09:38)
[2020-08-08] MEDS: LEVOTHYROXINE SODIUM 100 MCG VIAL IVPUSH SCH (09:38)
[2020-08-08] MEDS: levETIRAcetam 500 MG/5 ML INJECTION VIAL IVPB SCH ×2 (09:38→21:16)
[2020-08-08] MEDS: POLYETHYLENE GLYCOL 3350 119 GM BTL PO SCH ×2 (09:39→21:17)
[2020-08-08] MEDS: COLLAGENASE CLOSTRIDIUM HIST. 30 GRAMS TUBE TP SCH (09:39)
[2020-08-08] MEDS: SODIUM CHLORIDE 1,000 ML IV SCH (21:15)
[2020-08-09] MEDS: ASPIRIN 81 MG CHEWABLE TABLETS PO SCH (09:15)
[2020-08-09] MEDS: PANTOPRAZOLE SODIUM 40 MG VIAL IVPUSH SCH (09:15)
[2020-08-09] MEDS: POLYETHYLENE GLYCOL 3350 119 GM BTL PO SCH ×2 (09:17→21:13)
[2020-08-09] MEDS: DEXAMETHASONE SOD PHOSPHATE 4 MG/1 ML VIAL IVPUSH SCH ×2 (09:17→21:12)
[2020-08-09] MEDS: levETIRAcetam 500 MG/5 ML INJECTION VIAL IVPB SCH ×2 (09:18→21:12)
[2020-08-09] MEDS: LEVOTHYROXINE SODIUM 100 MCG VIAL IVPUSH SCH (09:21)
[2020-08-09] MEDS: LACOSAMIDE 50 MG TABLET PO SCH ×2 (09:23→21:12)
[2020-08-09] MEDS: COLLAGENASE CLOSTRIDIUM HIST. 30 GRAMS TUBE TP SCH (11:43)
[2020-08-09] MEDS ORDERED: BISACODYL 10 MG SUPP.RECT PR ONE (12:50)
[2020-08-09] MEDS: SODIUM CHLORIDE 1,000 ML IV SCH (21:12)
[2020-08-10 08:06] LABS: ALBUMIN 2.8 g/dl (3.4-5.0); BILIRUBIN,TOTAL 1.9 mg/dl (0.2-1); CALCIUM 8.1 mg/dl (8.5-10); CREATININE 0.7 mg/dl (0.55-1.3); MAGNESIUM 1.8 mg/dL (1.8-2.4); POTASSIUM 4.4 mmol/L (3.5-5.1); TOT PROT 5.6 g/dl (6.4-8.2)
[2020-08-10 08:29] LABS: RDW 15.1 % (11.9-15.9)
[2020-08-10 08:32] LABS: HEMATOCRIT 43.5 % (35.4-49); HEMOGLOBIN 13.8 GM/dl (11.7-16.9); MCH 29.4 pg (25.7-33.7); MCHC 31.8 g/dl (32.0-35.9); MEAN CELL VOLUME 92.2 fl (80-96); PLATELET COUNT 352 K/MM3 (134-434); RBC 4.72 M/mm3 (4.00-5.60); WHITE BLOOD COUNT 14.6 K/mm3 (4.0-10.8)
[2020-08-10] MEDS: DEXAMETHASONE SOD PHOSPHATE 4 MG/1 ML VIAL IVPUSH SCH ×2 (09:16→21:32)
[2020-08-10] MEDS: levETIRAcetam 500 MG/5 ML INJECTION VIAL IVPB SCH ×2 (09:16→21:32)
[2020-08-10] MEDS: LACOSAMIDE 50 MG TABLET PO SCH ×2 (09:16→21:33)
[2020-08-10] MEDS: ASPIRIN 81 MG CHEWABLE TABLETS PO SCH (09:16)
[2020-08-10] MEDS: PANTOPRAZOLE SODIUM 40 MG VIAL IVPUSH SCH (09:17)
[2020-08-10] MEDS: POLYETHYLENE GLYCOL 3350 119 GM BTL PO SCH ×2 (09:17→21:33)
[2020-08-10] MEDS: LEVOTHYROXINE SODIUM 100 MCG VIAL IVPUSH SCH (09:17)
[2020-08-10 09:36] LABS: ADD RBC MORPHOLOGY YES
[2020-08-10 09:37] LABS: ANISOCYTOSIS 1+
[2020-08-10 09:38] LABS: PLATELET ESTIMATE ADEQUATE
[2020-08-10] MEDS: COLLAGENASE CLOSTRIDIUM HIST. 30 GRAMS TUBE TP SCH (11:30)
[2020-08-10 20:59] LABS: CALCIUM 8.4 mg/dl (8.5-10); CREATININE 0.9 mg/dl (0.55-1.3); MAGNESIUM 1.8 mg/dL (1.8-2.4); POTASSIUM 4.3 mmol/L (3.5-5.1)
[2020-08-10] MEDS: SODIUM CHLORIDE 1,000 ML IV SCH (21:04)
[2020-08-11] MEDS: levETIRAcetam 500 MG/5 ML INJECTION VIAL IVPB SCH ×3 (07:44→21:13)
[2020-08-11 08:16] LABS: EOS % 0.1 % (0-4.5)
[2020-08-11 08:18] LABS: BASO % 4.5 % (0-2.0); LYMPH % 13.5 % (8-40); MCH 29.7 pg (25.7-33.7); MCHC 32.7 g/dl (32.0-35.9); MEAN CELL VOLUME 90.9 fl (80-96); MEAN PLT VOLUME 8.4 fl (7.5-11.1); MONO % 5.1 % (3.8-10.2); NEUT % 76.8 % (42.8-82.8); PLATELET COUNT 310 K/MM3 (134-434); RBC 5.06 M/mm3 (4.00-5.60); RDW 15.2 % (11.9-15.9); WHITE BLOOD COUNT 18.7 K/mm3 (4.0-10.8)
[2020-08-11 08:24] LABS: ALBUMIN 2.9 g/dl (3.4-5.0); BILIRUBIN,TOTAL 2.1 mg/dl (0.2-1); CALCIUM 8.8 mg/dl (8.5-10); CREATININE 0.8 mg/dl (0.55-1.3); MAGNESIUM 1.7 mg/dL (1.8-2.4); POTASSIUM 4.3 mmol/L (3.5-5.1); TOT PROT 5.9 g/dl (6.4-8.2)
[2020-08-11 08:36] LABS: INR 1.08 (0.82-1.09)
[2020-08-11] MEDS: DEXAMETHASONE SOD PHOSPHATE 4 MG/1 ML VIAL IVPUSH SCH ×2 (09:16→21:13)
[2020-08-11] MEDS: ASPIRIN 81 MG CHEWABLE TABLETS PO SCH (09:16)
[2020-08-11] MEDS: PANTOPRAZOLE SODIUM 40 MG VIAL IVPUSH SCH (09:18)
[2020-08-11] MEDS: POLYETHYLENE GLYCOL 3350 119 GM BTL PO SCH ×2 (09:18→21:13)
[2020-08-11] MEDS: COLLAGENASE CLOSTRIDIUM HIST. 30 GRAMS TUBE TP SCH (09:18)
[2020-08-11] MEDS: LEVOTHYROXINE SODIUM 100 MCG VIAL IVPUSH SCH (09:18)
[2020-08-11] MEDS: LACOSAMIDE 50 MG TABLET PO SCH ×2 (09:20→21:14)
[2020-08-11] MEDS ORDERED: levETIRAcetam 500 MG/5 ML INJECTION VIAL IVPB ONE (12:21)
[2020-08-11] MEDS ORDERED: LORazepam 2 MG/ML SDV VIAL ONE (14:13)
[2020-08-11] MEDS ORDERED: LORazepam 2 MG/ML SDV VIAL IVPUSH ONE (14:15)
[2020-08-11] MEDS ORDERED: LORazepam 2 MG/ML SDV VIAL IVPUSH PRN (14:31)
[2020-08-11] MEDS ORDERED: LORazepam 2 MG/ML SDV VIAL IVPUSH SCH ×2 (15:00)
[2020-08-11] MEDS: SODIUM CHLORIDE 1,000 ML IV SCH (21:12)
[2020-08-12 08:52] LABS: BILIRUBIN,TOTAL 2.7 mg/dl (0.2-1); CALCIUM 9.1 mg/dl (8.5-10); CREATININE 0.9 mg/dl (0.55-1.3); MAGNESIUM 1.9 mg/dL (1.8-2.4); POTASSIUM 5.1 mmol/L (3.5-5.1); TOT PROT 6.3 g/dl (6.4-8.2)
[2020-08-12] MEDS: ASPIRIN 81 MG CHEWABLE TABLETS PO SCH ×2 (09:41→11:24)
[2020-08-12] MEDS: POLYETHYLENE GLYCOL 3350 119 GM BTL PO SCH ×2 (09:43→21:37)
[2020-08-12] MEDS: LACOSAMIDE 50 MG TABLET PO SCH ×3 (09:45→21:38)
[2020-08-12] MEDS: DEXAMETHASONE SOD PHOSPHATE 4 MG/1 ML VIAL IVPUSH SCH ×2 (09:49→21:36)
[2020-08-12] MEDS: LEVOTHYROXINE SODIUM 100 MCG VIAL IVPUSH SCH (09:50)
[2020-08-12] MEDS: PANTOPRAZOLE SODIUM 40 MG VIAL IVPUSH SCH (09:50)
[2020-08-12 09:56] LABS: HEMATOCRIT 47.5 % (35.4-49)
[2020-08-12 09:58] LABS: BASO % 0.4 % (0-2.0); EOS % 0.1 % (0-4.5); HEMOGLOBIN 15.1 GM/dL (11.7-16.9); LYMPH % 14.4 % (8-40); MCHC 31.9 g/dl (32.0-35.9); MEAN CELL VOLUME 91.1 fl (80-96); MEAN PLT VOLUME 8.9 fl (7.5-11.1); MONO % 6.2 % (3.8-10.2); NEUT % 78.9 % (42.8-82.8); PLATELET COUNT 334 K/MM3 (134-434); RBC 5.21 M/mm3 (4.00-5.60); RDW 16.4 % (11.9-15.9); WHITE BLOOD COUNT 21.5 K/mm3 (4.0-10.0)
[2020-08-12] MEDS: levETIRAcetam 500 MG/5 ML INJECTION VIAL IVPB SCH ×2 (10:45→21:36)
[2020-08-12 11:46] LABS: ANISOCYTOSIS 0; MACROCYTOSIS 0; PLATELET ESTIMATE NORMAL
[2020-08-12] MEDS: COLLAGENASE CLOSTRIDIUM HIST. 30 GRAMS TUBE TP SCH (16:00)
[2020-08-12] MEDS: SODIUM CHLORIDE 1,000 ML IV SCH (21:37)
[2020-08-13] MEDS ORDERED: ACETAMINOPHEN 1000 MG/100 ML VIAL (NON FORMULARY) IVPB ONE (00:41)
[2020-08-13 08:19] LABS: ALBUMIN 2.9 g/dl (3.4-5.0); BILIRUBIN,TOTAL 3.3 mg/dl (0.2-1); CREATININE 1.2 mg/dl (0.55-1.3); MAGNESIUM 2.2 mg/dL (1.8-2.4); PHOSPHOROUS 4.2 mg/dl (2.5-4.9); POTASSIUM 4.7 mmol/L (3.5-5.1); TOT PROT 6.1 g/dl (6.4-8.2)
[2020-08-13 09:15] LABS: BASO % 0.7 % (0-2.0); EOS % 0.1 % (0-4.5); HEMATOCRIT 47.5 % (35.4-49); HEMOGLOBIN 15.1 GM/dL (11.7-16.9); MCH 29.2 pg (25.7-33.7); MCHC 31.8 g/dl (32.0-35.9); MEAN CELL VOLUME 91.8 fl (80-96); MEAN PLT VOLUME 9.3 fl (7.5-11.1); MONO % 6.2 % (3.8-10.2); PLATELET COUNT 276 K/MM3 (134-434); RBC 5.17 M/mm3 (4.00-5.60); RDW 16.7 % (11.9-15.9); WHITE BLOOD COUNT 22.1 K/mm3 (4.0-10.0)
[2020-08-13] MEDS: DEXAMETHASONE SOD PHOSPHATE 4 MG/1 ML VIAL IVPUSH SCH ×2 (09:18→21:58)
[2020-08-13] MEDS: levETIRAcetam 500 MG/5 ML INJECTION VIAL IVPB SCH ×2 (09:18→21:59)
[2020-08-13] MEDS: PANTOPRAZOLE SODIUM 40 MG VIAL IVPUSH SCH (09:19)
[2020-08-13] MEDS: ASPIRIN 81 MG CHEWABLE TABLETS PO SCH (09:19)
[2020-08-13] MEDS: LACOSAMIDE 50 MG TABLET PO SCH ×2 (09:19→22:00)
[2020-08-13] MEDS: LEVOTHYROXINE SODIUM 100 MCG VIAL IVPUSH SCH (09:19)
[2020-08-13] MEDS: COLLAGENASE CLOSTRIDIUM HIST. 30 GRAMS TUBE TP SCH (09:19)
[2020-08-13] MEDS ORDERED: MORPHINE SULFATE/0.9% NACL/PF 100 MG/100 ML BAG IVPB SCH (09:30)
[2020-08-13] MEDS: POLYETHYLENE GLYCOL 3350 119 GM BTL PO SCH ×2 (10:24→21:59)
[2020-08-13 10:33] LABS: ANISOCYTOSIS 0; MACROCYTOSIS 0; PLATELET ESTIMATE NORMAL
[2020-08-13] MEDS: LORazepam 2 MG/ML SDV VIAL IVPUSH PRN ×2 (12:15→18:27)
[2020-08-13] MEDS: MORPHINE SULFATE/0.9% NACL/PF 100 MG/100 ML BAG IVPB SCH (12:25)
[2020-08-13] MEDS: ACETAMINOPHEN 650 MG SUPP.RECT RC PRN (14:00)
[2020-08-13] MEDS ORDERED: PIPERACILLIN/TAZOBACTAM 3.375 GM VIAL IVPB ONE ×2 (14:42→16:18)
[2020-08-13] MEDS ORDERED: DEXTROSE 5%-WATER - 50 ML IVPB ONE ×2 (14:42→16:18)
[2020-08-13] MEDS ORDERED: VANCOMYCIN 1 GM in D5W (PRE-DOCKED) 1,000 MG/250 ML IVPB ONE (14:45)
[2020-08-13] MEDS: PIPERACILLIN/TAZOB 3.375 GM 3.375 GM in DEXTROSE 5%-WATER - 50 ML IVPB SCH ×2 (15:03→18:46)
[2020-08-13 18:41] LABS: AMORP URATES 3+ /hpf (NONE SEEN)
[2020-08-13] MEDS: SODIUM CHLORIDE 1,000 ML IV SCH (21:58)
[2020-08-14] MEDS ORDERED: DEXTROSE 5%-WATER - 50 ML IVPB ONE ×2 (01:40→09:17)
[2020-08-14] MEDS ORDERED: PIPERACILLIN/TAZOBACTAM 3.375 GM VIAL IVPB ONE ×2 (01:40→09:16)
[2020-08-14] MEDS: PIPERACILLIN/TAZOB 3.375 GM 3.375 GM in DEXTROSE 5%-WATER - 50 ML IVPB SCH ×4 (01:55→17:56)
[2020-08-14] MEDS: ACETAMINOPHEN 650 MG SUPP.RECT RC PRN (06:45)
[2020-08-14] MEDS: levETIRAcetam 500 MG/5 ML INJECTION VIAL IVPB SCH ×2 (10:10→21:39)
[2020-08-14] MEDS: LEVOTHYROXINE SODIUM 100 MCG VIAL IVPUSH SCH (10:10)
[2020-08-14] MEDS: DEXAMETHASONE SOD PHOSPHATE 4 MG/1 ML VIAL IVPUSH SCH ×2 (10:11→21:36)
[2020-08-14] MEDS: PANTOPRAZOLE SODIUM 40 MG VIAL IVPUSH SCH (10:20)
[2020-08-14] MEDS: POLYETHYLENE GLYCOL 3350 119 GM BTL PO SCH (10:21)
[2020-08-14] MEDS: ASPIRIN 81 MG CHEWABLE TABLETS PO SCH (10:24)
[2020-08-14] MEDS: COLLAGENASE CLOSTRIDIUM HIST. 30 GRAMS TUBE TP SCH (10:25)
[2020-08-14] MEDS: Lacosamide 200 MG/20 ML VIAL IVPB SCH ×2 (11:48→22:42)
[2020-08-14] MEDS: ACETAMINOPHEN 1000 MG/100 ML VIAL (NON FORMULARY) IVPB SCH ×2 (13:01→17:56)
[2020-08-14] MEDS: MORPHINE SULFATE/0.9% NACL/PF 100 MG/100 ML BAG IVPB SCH (13:09)
[2020-08-14] MEDS: LORazepam 2 MG/ML SDV VIAL IVPUSH PRN ×2 (13:18→19:24)
[2020-08-14] MEDS ORDERED: LORazepam 2 MG/ML SDV VIAL IVPUSH ONE (16:43)
[2020-08-14] MEDS: LACOSAMIDE 50 MG TABLET PO SCH (18:53)
[2020-08-14] MEDS: SODIUM CHLORIDE 1,000 ML IV SCH (22:42)
[2020-08-15] MEDS: ACETAMINOPHEN 1000 MG/100 ML VIAL (NON FORMULARY) IVPB SCH ×3 (00:15→12:36)
[2020-08-15] MEDS: PIPERACILLIN/TAZOB 3.375 GM 3.375 GM in DEXTROSE 5%-WATER - 50 ML IVPB SCH ×2 (01:39→09:50)
[2020-08-15 07:11] VITALS: BP 60/41; PULSE 101; TEMP 103.6
[2020-08-15] MEDS: LORazepam 2 MG/ML SDV VIAL IVPUSH PRN (07:40)
[2020-08-15] MEDS ORDERED: PIPERACILLIN/TAZOBACTAM 3.375 GM VIAL IVPB ONE (09:08)
[2020-08-15] MEDS ORDERED: DEXTROSE 5%-WATER - 50 ML IVPB ONE (09:08)
[2020-08-15] MEDS: LEVOTHYROXINE SODIUM 100 MCG VIAL IVPUSH SCH (09:37)
[2020-08-15] MEDS: PANTOPRAZOLE SODIUM 40 MG VIAL IVPUSH SCH (09:38)
[2020-08-15] MEDS: DEXAMETHASONE SOD PHOSPHATE 4 MG/1 ML VIAL IVPUSH SCH (09:38)
[2020-08-15] MEDS: levETIRAcetam 500 MG/5 ML INJECTION VIAL IVPB SCH (09:49)
[2020-08-15] MEDS: Lacosamide 200 MG/20 ML VIAL IVPB SCH (09:50)
[2020-08-15] MEDS: MORPHINE SULFATE/0.9% NACL/PF 100 MG/100 ML BAG IVPB SCH (12:45)
[2020-08-15] MEDS ORDERED: PT OWN MED DRAWER 7, Y5N ONE (14:39)
== END 2020-08-15 01:00 | disposition expired | DRG 54 ==
LOC: FER 16:08 → FM/S 17:41
PROVIDERS: ADMIT Internal Medicine; ATTEND Registered Nurse Emergency
DX: C79.31 Secondary malignant neoplasm of brain (principal); L89.893 Pressure ulcer of other site, stage 3; G93.6 Cerebral edema; G93.41 Metabolic encephalopathy; C34.90 Malignant neoplasm of unspecified part of unspecified bronchus or lung; C78.7 Secondary malignant neoplasm of liver and intrahepatic bile duct; E87.2 Acidosis; E87.1 Hypo-osmolality and hyponatremia; I25.10 Atherosclerotic heart disease of native coronary artery without angina pectoris; E11.42 Type 2 diabetes mellitus with diabetic polyneuropathy; G40.909 Epilepsy, unspecified, not intractable, without status epilepticus; R26.81 Unsteadiness on feet; I10 Essential (primary) hypertension; I45.10 Unspecified right bundle-branch block; R33.9 Retention of urine, unspecified; E03.9 Hypothyroidism, unspecified; R74.01 Elevation of levels of liver transaminase levels; D73.89 Other diseases of spleen; R50.9 Fever, unspecified; Z95.5 Presence of coronary angioplasty implant and graft; Z66 Do not resuscitate; Z51.5 Encounter for palliative care
CPT/HCPCS: 36415; 70450-TC; 71045-TC-FY; 71260-TC; 74177-TC; 80048; 80053; 80076; 80177; 81003; 81015; 82140; 82550; 82553; 82962; 83605; 83735; 83930; 83935; 84100; 84300; 84443; 84484; 85025; 85610; 85730; 86140; 87040; 87086; 87899; 93005; 99285-25; C9803; J0131; Q9967; U0003